=== PATIENT | male | born 1960 | race Caucasian/White ===

== ENCOUNTER 2018-09-07 13:02 | Inpatient (IN) | payer MEDICAID, OTHER ==
[~2018-09-07] VITALS: Ht 175.3 cm; Wt 71.3 kg
[2018-09-07] MEDS ORDERED: BUPR75 PO (14:39)
[2018-09-07 14:45] LABS: GLUCOSE,POINT OF CARE 208 MG/DL (70-110)
[2018-09-07 15:22] LABS: AMPHET/METH SCREEN,URINE NEGATIVE (NEGATIVE); BARBITURATE SCREEN, URINE NEGATIVE (NEGATIVE); BENZODIAZEPINES SCREEN,URINE NEGATIVE (NEGATIVE); CANNABINOID SCREEN,URINE POSITIVE (NEGATIVE); COCAINE SCREEN,URINE NEGATIVE (NEGATIVE); METHADONE SCREEN, URINE NEGATIVE (NEGATIVE); OPIATE SCREEN,URINE NEGATIVE (NEGATIVE); PHENCYCLIDINE SCREEN,URINE NEGATIVE (NEGATIVE)
[2018-09-07 15:27] LABS: BASOPHILS % (AUTO) 0.9 % (0.0-2.0); HEMATOCRIT 38.8 % (41-53); HEMOGLOBIN 13.2 g/dL (13.5-17.5); LYMPHOCYTES # (AUTO) 2.5 K/uL (1.0-4.8); MEAN CORPUSCULAR HEMOGLOBIN 31.5 pg (26.0-34.0); MEAN CORPUSCULAR VOLUME 93 fL (80-100); MONOCYTES # (AUTO) 0.5 K/uL (0.1-1.0); MONOCYTES % (AUTO) 5.8 % (2.0-9.0); NEUTROPHILS # (AUTO) 5.4 K/uL (1.8-7.7); NEUTROPHILS % (AUTO) 63.3 % (40.0-70.0); PLATELET COUNT (AUTO) 341 K/uL (150-450); RED BLOOD CELL COUNT(AUTO) 4.19 MIL/uL (4.50-5.90); RED CELL DISTRIBUTION WIDTH 14.4 % (11.5-14.5)
[2018-09-07 15:30] LABS: ANION GAP 6 mmol/L (8-16); CALCIUM, TOTAL 8.7 mg/dL (8.8-10.5); CARBON DIOXIDE 30 mmol/L (22-29); CHLORIDE 102 mmol/L (98-107); CREATININE 0.61 mg/dL (0.60-1.30); GLOMERULAR FILTR. RATE CALC > 60 mL/min (>60); GLUCOSE,RANDOM 194 mg/dL (70-110); POTASSIUM 3.7 mmol/L (3.5-5.1); SODIUM SERUM 138 mmol/L (136-145); UREA NITROGEN, BLOOD 11 mg/dL (7-18)
[2018-09-07 15:38] LABS: ALANINE AMINOTRANSFERASE 30 U/L (12-78); ALBUMIN 3.4 g/dL (3.4-5.0); ALKALINE PHOSPHATASE 64 U/L (46-116); ASPARTATE AMINOTRANSFERASE 24 U/L (15-37); BILIRUBIN,TOTAL 0.2 mg/dL (0.1-1.0); TOTAL PROTEIN, SERUM 6.8 g/dL (6.4-8.2)
[2018-09-07] MEDS ORDERED: LORazepam 2 MG TABLET PO ONE (16:00)
[2018-09-07] MEDS ORDERED: HALOPERIDOL 5 MG TABLET PO PRN (18:45)
[2018-09-07] MEDS ORDERED: ZOLPIDEM TARTRATE 10 MG TABLET PO PRN (18:45)
[2018-09-07 19:29] LABS: GLUCOSE,POINT OF CARE 121 MG/DL (70-110)
[2018-09-07 19:35] LABS: CHOLESTEROL 161 mg/dL (131-200); HDL CHOLESTEROL 32 mg/dL (40-60); LDL CHOL (CALC.) 92 mg/dL (0-130); TRIGLYCERIDES 185 mg/dL (15-150)
[2018-09-07 22:24] VITALS: BP 153/102
[2018-09-07] MEDS ORDERED: PNEUMOCOCCAL VACCINE POLYVALENT 0.5 ML VIAL [PPSV23] IM ONE (22:45)
[2018-09-07] MEDS ORDERED: MAG HYDROX/AL HYDROX/SIMETH ES 30 ML SUSPENSION UDCUP PO PRN (23:00)
[2018-09-07] MEDS ORDERED: CloNIDine HCL 0.1 MG TABLET PO PRN (23:00)
[2018-09-07] MEDS ORDERED: ALBUTEROL SULFATE HFA 90 MCG/PUFF 8 GM INHALER IH PRN (23:00)
[2018-09-07] MEDS ORDERED: NICOTINE 14 MG/24 HOUR PATCH TD PRN (23:00)
[2018-09-07] MEDS ORDERED: LOPERAMIDE HCL 2 MG CAPSULE PO PRN (23:00)
[2018-09-07] MEDS ORDERED: IBUPROFEN 400 MG TABLET PO PRN (23:00)
[2018-09-07] MEDS ORDERED: PETROLATUM,WHITE 71 GM JELLY TP PRN (23:00)
[2018-09-07] MEDS ORDERED: ACETAMINOPHEN 325 MG TABLET PO PRN (23:00)
[2018-09-07] MEDS ORDERED: DOCUSATE SODIUM 100 MG CAPSULE PO PRN (23:00)
[2018-09-07] MEDS ORDERED: ONDANSETRON HCL 4 MG TABLET PO PRN (23:00)
[2018-09-07] MEDS ORDERED: MAGNESIUM HYDROXIDE SUSPENSION 30 ML UDCUP PO PRN (23:00)
[2018-09-07] MEDS ORDERED: GuaiFENesin/D-METHORPHAN [SUGAR-FREE] 200-20MG/10 ML SYRUP UDCUP PO PRN (23:00)
[2018-09-08 06:30] VITALS: BP 138/86
[2018-09-08 07:59] LABS: BASOPHILS % (AUTO) 0.5 % (0.0-2.0); EOSINOPHILS % (AUTO) 1.8 % (1.0-6.0); HEMOGLOBIN 14.9 g/dL (13.5-17.5); LYMPHOCYTES # (AUTO) 3.1 K/uL (1.0-4.8); LYMPHOCYTES % (AUTO) 35.1 % (22.0-44.0); MEAN CORPUSCULAR HGB CONC 33.1 G/dL (31.0-37.0); MEAN CORPUSCULAR VOLUME 94 fL (80-100); MONOCYTES # (AUTO) 0.5 K/uL (0.1-1.0); MONOCYTES % (AUTO) 5.4 % (2.0-9.0); NEUTROPHILS # (AUTO) 5.1 K/uL (1.8-7.7); NEUTROPHILS % (AUTO) 57.2 % (40.0-70.0); PLATELET COUNT (AUTO) 391 K/uL (150-450); RED BLOOD CELL COUNT(AUTO) 4.81 MIL/uL (4.50-5.90); RED CELL DISTRIBUTION WIDTH 14.9 % (11.5-14.5)
[2018-09-08 08:53] LABS: CALCIUM, TOTAL 9.4 mg/dL (8.8-10.5); POTASSIUM 4.8 mmol/L (3.5-5.1)
[2018-09-08 09:14] VITALS: BP 115/68
[2018-09-08 09:20] LABS: ALANINE AMINOTRANSFERASE 33 U/L (12-78); ALKALINE PHOSPHATASE 71 U/L (46-116); ANION GAP 6 mmol/L (8-16); ASPARTATE AMINOTRANSFERASE 27 U/L (15-37); BILIRUBIN,TOTAL 0.4 mg/dL (0.1-1.0); CARBON DIOXIDE 31 mmol/L (22-29); CHLORIDE 102 mmol/L (98-107); CHOL/HDL RATIO 5.5 (4.2-7.3); CHOLESTEROL 193 mg/dL (131-200); CREATININE 0.62 mg/dL (0.60-1.30); GLOMERULAR FILTR. RATE CALC > 60 mL/min (>60); GLUCOSE,RANDOM 171 mg/dL (70-110); HDL CHOLESTEROL 35 mg/dL (40-60); LDL CHOL (CALC.) 115 mg/dL (0-130); SODIUM SERUM 139 mmol/L (136-145); THYROID STIMULATING HORMONE 1.55 uIU/mL (0.36-3.74); TRIGLYCERIDES 214 mg/dL (15-150); UREA NITROGEN, BLOOD 14 mg/dL (7-18)
[2018-09-08 09:35] LABS: HEMOGLOBIN A1C 7.6 % (4.5-6.2)
[2018-09-08] MEDS: BENAZEPRIL HCL 5 MG TABLET PO SCH (12:30)
[2018-09-08] MEDS: BuPROPion HCL 75 MG TABLET PO SCH ×2 (12:43→17:51)
[2018-09-08] MEDS: ASPIRIN 81 MG EC TABLET PO SCH (12:43)
[2018-09-08] MEDS: LORazepam 2 MG TABLET PO PRN (12:50)
[2018-09-08] MEDS ORDERED: MECLIZINE HCL 25 MG TABLET PO PRN (13:15)
[2018-09-08 16:18] VITALS: BP 108/72
[2018-09-08 17:04] LABS: GLUCOMETER DEV NAME(LOC) BV2X.; GLUCOSE,POINT OF CARE 178 MG/DL (70-110)
[2018-09-08] MEDS: MetFORMIN HCL 500 MG TABLET PO SCH (17:51)
[2018-09-08] MEDS ORDERED: DEXTROSE 50%-WATER 25 GM/50 ML SYRINGE IVP PRN (20:45)
[2018-09-08] MEDS ORDERED: INSULIN LISPRO 100 UNITS/ML SQ PRN (20:45)
[2018-09-08] MEDS ORDERED: GLUCAGON,HUMAN RECOMBINANT 1 MG VIAL IM PRN (21:00)
[2018-09-09 05:05] VITALS: BP 120/75
[2018-09-09 06:00] LABS: GLUCOMETER DEV NAME(LOC) BV2X.; GLUCOSE,POINT OF CARE 170 MG/DL (70-110)
[2018-09-09] MEDS: MetFORMIN HCL 500 MG TABLET PO SCH ×2 (06:27→17:00)
[2018-09-09] MEDS: INSULIN LISPRO 100 UNITS/ML SQ PRN ×2 (06:28→17:42)
[2018-09-09 08:50] VITALS: BP 125/81
[2018-09-09] MEDS: ASPIRIN 81 MG EC TABLET PO SCH (09:28)
[2018-09-09] MEDS: BuPROPion HCL 75 MG TABLET PO SCH ×3 (09:28→17:00)
[2018-09-09] MEDS: LORazepam 2 MG TABLET PO PRN ×2 (09:41→17:00)
[2018-09-09] MEDS: BENAZEPRIL HCL 5 MG TABLET PO SCH (17:00)
[2018-09-09 17:44] LABS: GLUCOMETER DEV NAME(LOC) BV2X.; GLUCOSE,POINT OF CARE 218 MG/DL (70-110)
[2018-09-09 19:05] VITALS: BP 123/61
[2018-09-10 01:16] VITALS: BP 110/62
[2018-09-10 05:40] LABS: GLUCOMETER DEV NAME(LOC) BV2X.; GLUCOSE,POINT OF CARE 144 MG/DL (70-110)
[2018-09-10] MEDS: MetFORMIN HCL 500 MG TABLET PO SCH (06:04)
[2018-09-10] MEDS: INSULIN LISPRO 100 UNITS/ML SQ PRN (06:32)
[2018-09-10] MEDS: ASPIRIN 81 MG EC TABLET PO SCH (08:59)
[2018-09-10] MEDS: BENAZEPRIL HCL 5 MG TABLET PO SCH (09:00)
[2018-09-10] MEDS: LORazepam 2 MG TABLET PO PRN (09:00)
[2018-09-10] MEDS: BuPROPion HCL 75 MG TABLET PO SCH ×2 (09:00→12:15)
[2018-09-10 09:06] VITALS: BP 164/64
[2018-09-10] MEDS ORDERED: ALBU8HFA IH (12:44)
[2018-09-10] MEDS ORDERED: BENA5 PO (12:44)
[2018-09-10] MEDS ORDERED: ASPI81TA39 PO (12:44)
[2018-09-10] MEDS ORDERED: METF500T PO (12:44)
== END 2018-09-10 13:00 | disposition home or self-care (01) | DRG 751 ==
LOC: EMS 13:02 → B2S 19:00
DX: F33.2 Major depressive disorder, recurrent severe without psychotic features (principal); E11.42 Type 2 diabetes mellitus with diabetic polyneuropathy; R45.851 Suicidal ideations; E11.65 Type 2 diabetes mellitus with hyperglycemia; E78.5 Hyperlipidemia, unspecified; F12.10 Cannabis abuse, uncomplicated; F41.9 Anxiety disorder, unspecified; I10 Essential (primary) hypertension; Z79.82 Long term (current) use of aspirin; Z88.0 Allergy status to penicillin; Z88.2 Allergy status to sulfonamides; Z79.899 Other long term (current) drug therapy; Z91.5 Personal history of self-harm; Z79.84 Long term (current) use of oral hypoglycemic drugs; Z71.51 Drug abuse counseling and surveillance of drug abuser
CPT/HCPCS: 83036; 84443; G0480